=== PATIENT | male | born 1990 | race Caucasian/White ===

== ENCOUNTER 2022-04-27 19:47 | Emergency (ER) | payer BC, MEDICAID, SELFPAY ==
--- NOTE | ~2022-04-27 | XR_ITS ---
EXAMINATION: XR chest 2V DATE: 04/27/2022 20:19 INDICATION: Chest pain TECHNIQUE: PA and lateral views of the chest are obtained. COMPARISON: None available FINDINGS: The lungs are free of acute opacities. There is no pleural effusion or pneumothorax. The ca rdiomediastinal silhouette is normal. The visualized bones and soft tissues are unremarkable. IMPRESSION: 1. No acute cardiopulmonary abnormality. Reviewed, dictated and finalized at location F.
--- NOTE | 2022-04-27 19:48 | ECG_ITS ---
Measurements Intervals [place] Rate: 84 P: 50 KS: 125 QRS: 75 QRSD: 95 T: 39 QT: 323 QTc: 382 Interpretive Statements SINUS RHYTHM NONSPECIFIC T-WAVE ABNORMALITY NO PREVIOUS ECG AVAILABLE FOR COMPARISON Electronically Signed On 04-27-2022 21:20:22 CDT by Samuel Bermudez MD
[2022-04-27 19:49] VITALS: BP 141/64; PULSE 84; RESP 18; TEMP 37.4; O2SAT 100
[2022-04-27 20:03] LABS: Basophils Percent Auto 0.2 % (0.2-1.2); Hematocrit 45.7 % (42.0-52.0); Hemoglobin 15.1 g/dL (14.0-18.0); Immature Granulocyte Absolute 0.05 K/mm3 (0.00-0.031); Immature Granulocyte Percent A 0.4 % (0-0.5); Lymphocytes Percent Auto 7.7 % (18.3-44.2); Mean Corpuscular Hemoglobin 29.5 pg (26-34); Mean Corpuscular Volume 89.4 fl (80-100); Mean Platelet Volume 10.1 fl (7.4-10.4); Monocytes Absolute Auto 0.7 K/mm3 (0.1-0.6); Monocytes Percent Auto 4.8 % (2.6-8.5); Neutrophils Absolute Auto 12.4 K/mm3 (1.3-6.7); Neutrophils Percent Auto 86.9 % (45.5-73.1); Platelet Count Result 232 k/mm3 (150-375); Red Blood Count 5.11 M/mm3 (4.6-6.20); Red Cell Distribution Width 12.7 % (11.5-14.5); White Blood Count 14.2 K/mm3 (4.5-10.0)
--- NOTE | 2022-04-27 20:07 | ED.CHESTPAIN ---
HPI - Chest Pain General Chief Complaint: Chest Pain Stated Complaint: right sided chest pain Time Seen by Provider: 04/27/22 19:59 Source: patient History of Present Illness HPI narrative: Patient presents with chest pain nausea and vomiting. Patient july has had symptoms for the past couple days also reports subjective chills at home. Reports his chest pain is worse with deep inspiration and moving his arm. Reports mild shortness of breath as he has pain when he takes a deep breath. Denies any urinary symptoms denies any known sick contacts recent travel outside the area recent antibiotics. Related Data Allergies Allergy/AdvReac Type Severity Reaction Status Date / Time No Known Allergies Allergy Verified 04/27/22 19:52 Review of Systems Review of Systems: CONSTITUTIONAL: Denies fever, chills, or sweats. EYES: Denies visual changes, redness, or discharge. ENT: Denies rhinorrhea, congestion, sore throat, or otalgia. CARDIOVASCULAR: Denies palpitations, or edema. RESPIRATORY: Denies cough or dyspnea. GASTROINTESTINAL: Vomiting GENITOURINARY: Denies dysuria or hematuria. SKIN: Denies rash or itching. MUSCULOSKELETAL: Denies back pain, joint pain, or myalgia. NEUROLOGIC: Denies headache, numbness, dizziness, or weakness. PSYCHIATRIC: Denies anxiety or depression. All systems reviewed & are unremarkable except as noted in HPI and below Exam Narrative: GENERAL: Well-appearing, well-nourished, and in no acute distress. HEAD: Normocephalic, atraumatic. EYES: PERRLA and EOMI. ENT: Nares clear, no rhinorrhea or epistaxis. Mucous membranes moist. NECK: Supple. No masses. No JVD CHEST: Clear to auscultation. No respiratory distress. No wheezes rales or rhonchi tenderness palpation on the right chest HEART: Regular rate and rhythm. No murmur heard. Normal peripheral pulses. ABDOMEN: Soft, nontender, nondistended, normal active bowel sounds. EXTREMITIES: Normal range of motion. No edema. SKIN: Warm, dry, no rash. NEURO: No focal deficits. Alert and oriented x3. PSYCH: Normal mood and affect. Course Reevaluation(s) Reevaluation #1: Patient resting company results and plan reviewed with patient. Patient comfortable outpatient plan. Date: 04/27/22 Time: 20:35 Vital Signs Vital signs: Vital Signs Temperature 37.4 C 04/27/22 19:49 Pulse Rate 84 04/27/22 19:49 Respiratory Rate 18 04/27/22 19:49 Blood Pressure 141/64 H 04/27/22 19:49 Pulse Oximetry 100 04/27/22 19:49 Oxygen Delivery Room Air 04/27/22 19:49 Temperature 37.4 C 04/27/22 19:49 Pulse Rate 86 04/27/22 20:50 Respiratory Rate 14 04/27/22 20:50 Blood Pressure 144/88 H 04/27/22 20:50 Pulse Oximetry 99 04/27/22 20:50 Oxygen Delivery Room Air 04/27/22 19:49 MDM - Chest Pain MDM Narrative Medical decision making narrative: H&P as above, vss, pt looks clinically well, exam reproducible chest pain, labs with mild leukocytosis otherwise clinically unremarkable, img without acute process, additional labs/img considered, symptomatic relief available as needed, on reevaluation pt continues to looks clinically well. Suspect viral syndrome, dns ACS, PE PERC negative dissection, pneumothorax, severe sepsis, severe dehydration plan to tx/monitor as op w/ pcm f/u findings/plan discussed with pt, pt agree/comfortable with plan, return precautions given Lab Data Result diagrams: 04/27/22 19:56 04/27/22 19:56 Labs: Lab Results 04/27/22 04/27/22 04/27/22 Range/Units 19:56 19:56 19:56 WBC 14.2 H (4.5-10.0) K/mm3 RBC 5.11 (4.6-6.20) M/mm3 Hgb 15.1 (14.0-18.0) g/dL Hct 45.7 (42.0-52.0) % MCV 89.4 (80-100) fl MCH 29.5 (26-34) pg MCHC 33.0 (32-36) g/dl RDW 12.7 (11.5-14.5) % Plt Count 232 (150-375) k/mm3 MPV 10.1 (7.4-10.4) fl Immature Gran % (Auto) 0.4 (0-0.5) % Neut % (Auto) 86.9 H (45.5-73.1) % Lymph % (Auto) 7.7 L (18.3-44.2) % Mon
[2022-04-27 20:14] LABS: Alanine Aminotransferase 38 U/L (6-50); Albumin Level 4.4 g/dL (3.5-5.1); Alkaline Phosphatase 88 U/L (38-126); Anion Gap 6 mmol/L (8-16); Aspartate Amino Transferase 27 U/L (17-59); Bilirubin,Total 0.8 mg/dL (0.2-1.3); Blood Urea Nitrogen 16 mg/dL (9-20); Calcium 9.1 mg/dL (8.4-10.2); Carbon Dioxide 31 mmol/L (22-30); Chloride 97 mmol/L (98-107); Estimated CRCL calculation 106 ml/min; Estimated Glomerular Filt Rate > 60; Glucose 140 mg/dL (65-110); Lipase 16 U/L (23-300); Potassium 4.2 mmol/L (3.4-5.0); Sodium 134 mmol/L (137-145)
[2022-04-27 20:20] LABS: INR 1.1
[2022-04-27 20:21] LABS: Partial Thromboplastin Time 27.4 SECONDS (22.3-36.8)
[2022-04-27 20:25] LABS: Troponin I < 0.012 ng/mL (0.000-0.034)
[2022-04-27] MEDS: ONDANSETRON INJ 4 MG/2 ML VIAL IV PUSH (20:29)
[2022-04-27] MEDS: KETOROLAC 15 MG/ML VIAL (*BKC) IV PUSH (20:29)
[2022-04-27 20:50] VITALS: BP 144/88; PULSE 86; RESP 14; O2SAT 99
[2022-04-27 21:07] LABS: SARS-CoV-2 RNA PCR Negative
== END 2022-04-27 20:55 | disposition home or self-care (01) ==
PROVIDERS: Emergency Provider Emergency Medicine
DX: D72.829 Elevated white blood cell count, unspecified (principal); R07.9 Chest pain, unspecified; R11.2 Nausea with vomiting, unspecified; Z20.822 Contact with and (suspected) exposure to COVID-19; R94.31 Abnormal electrocardiogram [ECG] [EKG]
CPT/HCPCS: 36415; 71046; 80053; 83690; 84484; 85025; 85610; 85730; 93005; 96374; 96375; 99284; C9803; J1885; J2405; U0003; U0005